=== PATIENT | female | born 1985 | race Caucasian/White ===

== ENCOUNTER 2017-10-30 07:01 | Emergency (ER) | payer BC ==
[~2017-10-30] VITALS: Ht 160 cm; Wt 62.7 kg
[2017-10-30] MEDS ORDERED: MAGICADU2 SWISH-SWAL (07:29)
[2017-10-30] MEDS ORDERED: PENI500T PO (07:29)
--- NOTE | 2017-10-30 07:31 | PD ---
HPI Chief Complaint: ENT Complaint Time Seen by Provider: 07:23 Travel History International Travel<30 days: No Contact w/Intl Traveler<30days: No Traveled to known affect area: No History of Present Illness HPI This patient complains of sore throat. Duration is 2 days. Severity is moderate. She has subjective fever. She has pain when she swallows. No alleviating factors PFSH Past Medical History Medical History: Denies Significant Hx Diminished Hearing: No Tetanus Vaccination: Unknown ?: Not Past Surgical History Surgical History: No Previous Surgery Social History Alcohol Use: Yes (SOC) Tobacco Use: No Substance Use: No Allergies-Medications (Allergen,Severity, Reaction): Coded Allergies: No Known Allergies (Unverified , 10/30/17) Reported Meds & Prescriptions Reported Meds & Active Scripts Active Magic Mouthwash Adult Liq (Multi-Ingredient Mouthwash/Gargle) 120 Ml Susp 10 Ml SWISH-SWAL ACHS Each 5mL contains: Nystatin 200,000units, Diphenhydramine 4.25mg, Viscous Lidocaine 10mg, North syrup 0.8 mL Penicillin V Potassium 500 Mg Tab 500 Mg PO Q6H Review of Systems General / Constitutional: Positive: Fever HENT: Positive: Sore Throat Respiratory: No: Cough Gastrointestinal: No: Diarrhea Physical Exam Narrative SKIN: Focused skin assessment reveals no rash or ulcers. Skin is warm and dry. Palpation shows no induration or nodules. Psych: Normal mood and affect. Normal insight and judgment. Oral cavity: Patient has enlarged tonsils covered with exudate. Uvula midline. MDM Medical Decision Making Medical Screen Exam Complete: Yes Emergency Medical Condition: Yes Medical Record Reviewed: Yes Differential Diagnosis Strep pharyngitis, mono, viral infection Narrative Course I have reviewed the patient's electronic medical record. Presentation is consistent with strep pharyngitis. Lack of viral symptoms fits this picture. 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 Penicillin and Magic mouthwash for symptom relief prescribed Diagnosis Primary Impression: Pharyngitis, acute Qualified Codes: J02.8 - Acute pharyngitis due to other specified organisms Additional Instructions: The patient was advised to follow up with their physician and return if they worsen. The patient was warned about potential sedation for the medications they will receive on prescription. Med/Other Pt SpecificInfo: Prescription(s) given Scripts Xmtpdcpi-Gvkyslcmucmpwzp-Wbrpizfmr Liq (Magic Mouthwash Adult Liq) 120 Ml Susp 10 ML SWISH-SWAL ACHS for Mouth sores, #120 ML 0 Refills Each 5mL contains: Nystatin 200,000units, Diphenhydramine 4.25mg, Viscous Lidocaine 10mg, North syrup 0.8 mL Prov: iKran Falk MD 10/30/17 Penicillin V Potassium (Penicillin V Potassium) 500 Mg Tab 500 MG PO Q6H for Infection, #28 TAB 0 Refills Prov: Kiran Falk MD 10/30/17 Disposition: 01 DISCHARGE HOME Condition: Stable Kiran Falk MD Oct 30, 2017 07:31
== END 2017-10-30 07:56 | disposition home or self-care (01) ==
LOC: PHEFT 07:01
DX: J02.0 Streptococcal pharyngitis (principal)
CPT/HCPCS: 99284